=== PATIENT | female | born 1935 | race Caucasian/White ===

== ENCOUNTER 2022-05-23 15:47 | Emergency (ER) | payer OTHER ==
[~2022-05-23] VITALS: Ht 152.4 cm; Wt 49.9 kg
[2022-05-23 16:57] VITALS: BP 156/102
[2022-05-23] MEDS ORDERED: IBUPROFEN 400 MG TAB PO ONE (18:45)
[2022-05-23 19:15] LABS: BASOPHILS % (AUTO) 0.5 % (0.0-2.0); EOSINOPHILS # (AUTO) 0.1 K/uL (0-0.4); EOSINOPHILS % (AUTO) 1.6 % (0.0-4.0); HEMATOCRIT 37.9 % (36-48); HEMOGLOBIN 12.6 g/dL (12.0-16.0); LYMPHOCYTES # (AUTO) 2.5 K/uL (2.5-16.5); LYMPHOCYTES % (AUTO) 27.6 % (20.5-51.1); MEAN CORPUSCULAR HEMOGLOBIN 30 pg (27-31); MEAN CORPUSCULAR HGB CONC 33 g/dL (33-37); MEAN CORPUSCULAR VOLUME 89.5 fL (80-94); MONOCYTES # (AUTO) 0.8 K/uL (0.8-1.0); MONOCYTES % (AUTO) 8.3 % (1.7-9.3); NEUTROPHILS # (AUTO) 5.7 K/uL (1.8-7.7); PLATELET COUNT (AUTO) 253 K/uL (140-450); RED BLOOD CELL COUNT(AUTO) 4.23 MIL/uL (4.20-5.40); RED CELL DISTRIBUTION WIDTH 13.8 % (11.6-13.7); WHITE BLOOD COUNT (AUTO) 9.2 K/uL (4.8-10.8)
[2022-05-23 19:37] LABS: ANION GAP 15.2 (8-16); CARBON DIOXIDE 22.2 mmol/L (21-32); CHLORIDE 102 mmol/L (98-107); CREATININE 0.8 mg/dL (0.6-1.3); GLUCOSE 288 mg/dL (74-106); POTASSIUM 4.4 mmol/L (3.5-5.1); SODIUM SERUM 135 mmol/L (136-145); UREA NITROGEN, BLOOD 13 mg/dL (7-18)
[2022-05-23] MEDS ORDERED: SODIUM CHLORIDE FLUSH 10 ML SYR IVF SCH (21:00)
--- NOTE | 2022-05-23 22:23 | NUR ---
SEEN AND EXAMINED BY PLACIDO.
[2022-05-23] MEDS ORDERED: ACETAMINOPHEN 325 MG TAB PO ONE (22:35)
[2022-05-23] MEDS ORDERED: LIDOCAINE 5% 1 EA PATCH TP ONE (22:35)
[2022-05-23] MEDS ORDERED: ALBU0.0912 IH (22:47)
[2022-05-23] MEDS ORDERED: DICL100G5 TP (22:47)
[2022-05-23] MEDS ORDERED: LID5T TP (22:47)
--- NOTE | 2022-05-23 22:51 | NUR ---
pt called for medication, no answer.
--- NOTE | 2022-05-23 22:52 | NUR ---
called number on file, pt's daughter states they just left.
[2022-05-23 22:56] VITALS: BP 156/102
--- NOTE | 2022-05-23 22:56 | NUR ---
pt left without paper work. md jara prescribed albuterol, diclofenac, and lidocaine.
== END 2022-05-23 22:56 | disposition home or self-care (01) ==
LOC: MED 15:47
DX: M54.50 Low back pain, unspecified (principal)
CPT/HCPCS: 36415; 71045; 72170; 80048; 85025; 99284; G0480

== ENCOUNTER 2023-08-04 10:25 | Emergency (ER) | payer OTHER ==
[~2023-08-04] VITALS: Ht 152.4 cm; Wt 49.9 kg
[~2023-08-04 10:25] MED LIST: ALBU0.0912 IH; DICL100G32 TP; LID5T TP
[2023-08-04 10:33] VITALS: BP 134/70; PULSE 83; RESP 18; TEMP 98.3; O2SAT 95
[2023-08-04 11:15] LABS: BASOPHILS % (AUTO) 0.4 % (0.0-2.0); EOSINOPHILS % (AUTO) 0.8 % (0.0-4.0); HEMATOCRIT 37.7 % (36-48); HEMOGLOBIN 12.5 g/dL (12.0-16.0); LYMPHOCYTES # (AUTO) 1.5 K/uL (2.5-16.5); LYMPHOCYTES % (AUTO) 27.5 % (20.5-51.1); MEAN CORPUSCULAR HEMOGLOBIN 29 pg (27-31); MEAN CORPUSCULAR HGB CONC 33 g/dL (33-37); MEAN CORPUSCULAR VOLUME 88.6 fL (80-94); MONOCYTES # (AUTO) 0.4 K/uL (0.8-1.0); NEUTROPHILS # (AUTO) 3.5 K/uL (1.8-7.7); NEUTROPHILS % (AUTO) 64.3 % (42.2-75.2); PLATELET COUNT (AUTO) 201 K/uL (140-450); RED BLOOD CELL COUNT(AUTO) 4.26 MIL/uL (4.20-5.40); RED CELL DISTRIBUTION WIDTH 14.7 % (11.6-13.7); WHITE BLOOD COUNT (AUTO) 5.4 K/uL (4.8-10.8)
[2023-08-04 11:20] LABS: APPEARANCE,URINE CLEAR (CLEAR); BILIRUBIN,URINE NEGATIVE (NEGATIVE); BLOOD, URINE NEGATIVE (NEGATIVE); COLOR,URINE YELLOW (YELLOW); LEUKOCYTE ESTERASE ,URINE NEGATIVE (NEGATIVE); NITRITE, URINE NEGATIVE (NEGATIVE); PH,URINE 6.5 (5.0-9.0); PROTEIN,URINE NEGATIVE (NEGATIVE); UGLUCOSE 3+ (NEGATIVE)
[2023-08-04 11:22] LABS: ANION GAP 12.4 (8-16); CARBON DIOXIDE 27.6 mmol/L (21-32); CHLORIDE 102 mmol/L (98-107); CREATININE 0.8 mg/dL (0.6-1.3); GLUCOSE 367 mg/dL (74-106); SODIUM SERUM 138 mmol/L (136-145); UREA NITROGEN, BLOOD 13 mg/dL (7-18)
[2023-08-04 11:35] LABS: BACTERIA,URINE 0-2 /HPF (None Seen); RBC,URINE 0-5 /HPF (0-5); SQUAMOUS EPITHELIAL CELL,UR 4-10 (MOD) /LPF (0-3 (FEW)); WBC,URINE 0-5 /HPF (0-5)
[2023-08-04] MEDS: NACL 0.9% 500 ML IV ONE (12:38)
[2023-08-04 13:25] VITALS: BP 11/56; PULSE 74; RESP 18; O2SAT 99
== END 2023-08-04 13:22 | disposition left against medical advice (07) ==
LOC: MED 10:25
DX: E11.65 Type 2 diabetes mellitus with hyperglycemia (principal); R42 Dizziness and giddiness; R53.1 Weakness; I10 Essential (primary) hypertension; Z79.899 Other long term (current) drug therapy
CPT/HCPCS: 36415; 70450; 71045; 80048; 81001; 84484; 85025; 93005; 96360; 99285; J7030

== ENCOUNTER 2023-10-22 16:29 | Emergency (ER) | payer OTHER ==
[~2023-10-22] VITALS: Ht 121.9 cm; Wt 49.9 kg
[2023-10-22 16:31] VITALS: BP 141/69; PULSE 82; RESP 18; TEMP 98; O2SAT 97
[2023-10-22] MEDS: MORPHINE SULFATE 4 MG/ML SYR IM ONE (17:39)
[2023-10-22] MEDS ORDERED: ACET-8905 PO (17:49)
[2023-10-22 18:05] VITALS: BP 128/53; PULSE 74; RESP 18; O2SAT 98
== END 2023-10-22 18:05 | disposition home or self-care (01) ==
LOC: MED 16:29
DX: K08.89 Other specified disorders of teeth and supporting structures (principal); R51.9 Headache, unspecified; Z79.899 Other long term (current) drug therapy
CPT/HCPCS: 82948; 96372; 99283; J2270